=== PATIENT | male | born 1970 | race African-American/Black ===

== ENCOUNTER 2022-04-05 22:35 | Emergency (ER) | payer SELFPAY ==
[~2022-04-05] VITALS: Ht 172.7 cm; Wt 70.0 kg
[2022-04-05 22:44] VITALS: BP 140/80
[2022-04-06] MEDS ORDERED: LISI10TA26 MT (00:40)
[2022-04-06] MEDS ORDERED: METF-414 MT (00:40)
[2022-04-06] MEDS ORDERED: IBUP-2030 MT (00:41)
[2022-04-06] MEDS ORDERED: TOPUD PO (08:55)
== END 2022-04-06 01:30 | disposition home or self-care (01) ==
LOC: ER 22:35
DX: S86.811A Strain of other muscle(s) and tendon(s) at lower leg level, right leg, initial encounter (principal); X58.XXXA Exposure to other specified factors, initial encounter; Y93.89 Activity, other specified; Y92.89 Other specified places as the place of occurrence of the external cause; Y99.8 Other external cause status; K59.00 Constipation, unspecified; Z88.0 Allergy status to penicillin; Z59.00 Homelessness unspecified; E11.9 Type 2 diabetes mellitus without complications; I10 Essential (primary) hypertension
CPT/HCPCS: 99283

== ENCOUNTER 2022-04-06 07:33 | Emergency (ER) | payer MEDICAID ==
[~2022-04-06] VITALS: Ht 180.3 cm; Wt 115.0 kg
[~2022-04-06 07:33] MED LIST: IBUP-2030 MT; LISI10TA26 MT; METF-414 MT
[2022-04-06 07:39] VITALS: BP 204/156
[2022-04-06] MEDS ORDERED: ACETAMINOPHEN 325MG TABLET PO ONE (08:15)
[2022-04-06 08:29] LABS: BASOPHILS % 0.7 % (0.0-2.0); EOSINOPHILS % 1.7 % (0.0-5.0); HEMATOCRIT. 41.5 % (42.0-52.0); HEMOGLOBIN. 13.5 g/dL (14.0-18.0); LYMPHOCYTES % 23.1 % (20.0-50.0); MEAN CORPUSCULAR HEMOGLOBIN 32.3 pg (28.0-32.0); MEAN CORPUSCULAR VOLUME 98.9 fL (80.0-94.0); MEAN PLATELET VOLUME 8.5 fl (7.4-10.4); MONOCYTES % 7.7 % (2.0-8.0); NEUTROPHILS % 66.8 % (40.0-76.0); PLATELET 196 x1000/uL (130-400); RED CELL DISTRIBUTION WIDTH 13.9 % (11.6-14.6)
[2022-04-06 08:39] LABS: CHLORIDE 105 mEq/L (98-107)
[2022-04-06] MEDS ORDERED: TOPUD PO (08:55)
== END 2022-04-06 10:52 | disposition home or self-care (01) ==
LOC: ER 07:33
DX: R06.00 Dyspnea, unspecified (principal); R07.81 Pleurodynia; M79.661 Pain in right lower leg; I10 Essential (primary) hypertension; Z87.828 Personal history of other (healed) physical injury and trauma; Z87.81 Personal history of (healed) traumatic fracture; Z98.890 Other specified postprocedural states; Z88.0 Allergy status to penicillin
CPT/HCPCS: 36415; 71101; 73551; 80053; 83880; 85025; 93005; 99285

== ENCOUNTER 2022-04-06 21:46 | Emergency (ER) | payer MEDICAID ==
[~2022-04-06] VITALS: Ht 180.3 cm; Wt 116.0 kg
[~2022-04-06 21:46] MED LIST changes: +TOPUD PO
[2022-04-06 21:51] VITALS: BP 130/80
[2022-04-06 23:39] LABS: BASOPHILS % 1.1 % (0.0-2.0); EOSINOPHILS % 3.7 % (0.0-5.0); HEMATOCRIT. 37.9 % (42.0-52.0); HEMOGLOBIN. 12.5 g/dL (14.0-18.0); LYMPHOCYTES % 26.6 % (20.0-50.0); MEAN CORPUSCULAR HEMOGLOBIN 32.4 pg (28.0-32.0); MEAN CORPUSCULAR VOLUME 98.4 fL (80.0-94.0); MEAN PLATELET VOLUME 9.1 fl (7.4-10.4); MONOCYTES % 9.8 % (2.0-8.0); NEUTROPHILS % 58.8 % (40.0-76.0); PLATELET 184 x1000/uL (130-400); RED BLOOD CELL COUNT 3.86 mill/uL (4.7-6.1); RED CELL DISTRIBUTION WIDTH 13.8 % (11.6-14.6)
[2022-04-07 00:14] LABS: CHLORIDE 106 mEq/L (98-107)
== END 2022-04-07 02:54 | disposition home or self-care (01) ==
LOC: ER 21:46
DX: R07.89 Other chest pain (principal); Z68.35 Body mass index [BMI] 35.0-35.9, adult; I11.0 Hypertensive heart disease with heart failure; I50.9 Heart failure, unspecified; Z88.0 Allergy status to penicillin
CPT/HCPCS: 36415; 71045; 80053; 83880; 85025; 93005; 99285